=== PATIENT | female | born 1960 ===

== ENCOUNTER 2017-12-01 08:03 | Inpatient (IN) | payer OTHER ==
[~2017-12-01] VITALS: Ht 165.1 cm; Wt 53.1 kg
[~2017-12-01 08:03] MED LIST: CITA20TA19 PO
--- NOTE | 2017-12-02 01:15 | NUR ---
Intake Notes Px is a 57 y/o female, seen at intake, A&Ox4, no SOB with moderate to severe anxiety noted at this time. Discussed with patient the admission policies of the unit. Patient is coherent and able to respond to questions appropriately. Px is ambulatory with steady gait. Vital signs taken and as follows: BP: 127/84, P: 91, R: 17, O2: 97%, T: 96.5, PA: 0. Px verbalized understanding of instructions and teachings regarding disposal of narcotic and other controlled home medications, unit protocols such as taking of vital signs Q4H and handling and disposal of contraband. We'll continue with admission upon px's arrival on the unit.
[2017-12-02] MEDS ORDERED: LOPERAMIDE HCL 2 MG CAPSULE PO PRN ×2 (01:30)
[2017-12-02] MEDS ORDERED: CLONIDINE HCL 0.1 MG TABLET PO PRN (01:30)
[2017-12-02] MEDS ORDERED: IBUPROFEN 400 MG TABLET PO PRN (01:30)
[2017-12-02] MEDS ORDERED: HYDROXYZINE PAMOATE 25 MG CAPSULE PO PRN (01:30)
[2017-12-02] MEDS ORDERED: DICYCLOMINE HCL 20 MG TABLET PO PRN (01:30)
[2017-12-02] MEDS ORDERED: ACETAMINOPHEN 325 MG TABLET PO PRN (01:30)
[2017-12-02] MEDS ORDERED: ONDANSETRON ODT 4 MG TAB.RAPDIS SL PRN (01:30)
[2017-12-02] MEDS ORDERED: MAG HYDROX/AL HYDROX/SIMETH 30 ML LIQUID UDC PO PRN (01:30)
[2017-12-02] MEDS ORDERED: LORAZEPAM 1 MG TABLET PO PRN ×2 (01:30)
[2017-12-02] MEDS ORDERED: ONDANSETRON 4 MG/2 ML VIAL IM PRN (01:30)
[2017-12-02] MEDS ORDERED: MAGNESIUM HYDROXIDE 30 ML LIQUID UDC PO PRN (01:30)
[2017-12-02] MEDS ORDERED: diphenhydrAMINE 50 MG CAPSULE PO PRN (01:30)
[2017-12-02] MEDS ORDERED: LORAZEPAM 2 MG/1 ML VIAL IM PRN (01:30)
[2017-12-02] MEDS ORDERED: MIRALAX 17 GM POWD.PACK PO PRN (01:30)
[2017-12-02] MEDS ORDERED: THIAMINE HCL 200 MG/2 ML VIAL IM ONE (01:30)
[2017-12-02 01:42] LABS: BASOPHILS # (AUTO) 0.1 K/uL (0.0-8.0); BASOPHILS % (AUTO) 1.1 % (0.0-2.0); EOSINOPHILS % (AUTO) 0.5 % (0.0-7.0); HEMATOCRIT 41.3 % (31.2-41.9); HEMOGLOBIN 14.9 g/dL (10.9-14.3); LYMPHOCYTES # (AUTO) 0.9 K/uL (20.0-40.0); LYMPHOCYTES % (AUTO) 17.8 % (20.5-51.5); MEAN CORPUSCULAR HEMOGLOBIN 33.9 uug (24.7-32.8); MEAN CORPUSCULAR HGB CONC 36 g/dL (32.3-35.6); MEAN CORPUSCULAR VOLUME 94.2 fL (75.5-95.3); MONOCYTES # (AUTO) 0.5 K/uL (2.0-10.0); MONOCYTES % (AUTO) 10.8 % (0.0-11.0); NEUTROPHILS # (AUTO) 3.5 K/uL (1.8-8.9); NEUTROPHILS % (AUTO) 69.8 % (38.5-71.5); PLATELET COUNT (AUTO) 378 K/uL (179-408); RED BLOOD CELL COUNT(AUTO) 4.39 MIL/uL (3.63-4.92); WHITE BLOOD COUNT (AUTO) 5.1 K/uL (3.8-11.8)
--- NOTE | 2017-12-02 01:45 | NUR ---
Admission Notes Ranjit is a 57 y/o female admitted on 12/02/17 for ETOH dependence, arrived on the unit at 0128. Px able to provide UDS during intake. Skin and body check completed. Ranjit is full code, NKA, regular diet and on fall/seizure precautions. No reported seizure history. Ranjit reports PMHx of anxiety, insomnia and breast augmentation in 1988. Ranjit refuses flu/pneumonia vaccine. Vitals upon assessment are BP: 125/81, P: 93, R: 18, O2: 97%, T: 97.3, PA: 0/10. Ranjit's weight 117 lbs, and height 5'5". Ranjit is currently intoxicated and reports his last intake was wine 1 L on 12/01/2017. Ranjit has OB and Gyne, Dr. Vo. Ranjit smokes approximately 5 to 10 sticks of cigarettes daily. Ranjit denies being hospitalized or in intermediate within past 30 days. Ranjit is not currently taking any home medications. Ranjit is able to understand and respond to all questions pertaining to his hospitalization. Substance Abuse History is as follows: 1. ETOH- Wine 1.25 L a day for 2 months, last intake on 12/01/2017 1L. Ranjit has been drinking for 36 years Pxs longest sober period was 9 months in 2013. Ranjit reports several rehab and detox already. Reports substance use history with her grandfather. Upon assessment, ranjit is A&Ox4 and presents with anxiety, agitation, and flushed skin. Respirations are even and unlabored. Px denies SOB or chest pain. Bowel sounds active x 4, abdomen soft. PERRLA. Skin intact, no open wounds noted. Px denies SI/HI at this time. Px reports not having history of suicidal thoughts. Educational information provided and left at bedside. Px oriented to room and encouraged to notify staff with any concerns. Safety measures in place. Call light within reach, side rails up x 2, bed locked and in low position. We'll continue to monitor.
[2017-12-02 01:57] LABS: BILIRUBIN,TOTAL 0.6 mg/dL (0.2-1.0); CREATININE 0.7 mg/dL (0.6-1.3); MAGNESIUM 2.1 mg/dL (1.8-2.4); POTASSIUM 3.8 mmol/L (3.5-5.1); TOTAL PROTEIN, SERUM 9.2 g/dL (6.4-8.2)
[2017-12-02 02:00] LABS: *AMPHETAMINE, URINE NEGATIVE (NEGATIVE); *BARBITURATE, URINE NEGATIVE (NEGATIVE); *CANNABINOID, URINE NEGATIVE (NEGATIVE); *COCCAINE, URINE NEGATIVE (NEGATIVE); *OPIATE, URINE NEGATIVE (NEGATIVE); *PHENCYCLIDINE SCREEN,URINE NEGATIVE (NEGATIVE)
[2017-12-02 02:03] LABS: *URINE HCG, QUAL NEGATIVE (NEGATIVE)
[2017-12-02 02:07] LABS: THYROID STIMULATING HORMONE 1.825 mIU/mL (0.358-3.740)
--- NOTE | 2017-12-02 02:14 | NUR ---
PRN meds Px reports severe anxiety and wanted to sleep badly. CIWA 13. Ativan 1 mg/tab, 2 tabs given PO; Benadryl 50 mg/cap, 1 cap given PO; Vistaril 25 mg/cap, 2 caps given PO as PRN meds. We'll continue to monitor.
[2017-12-02] MEDS ORDERED: THIAMINE HCL 200 MG/2 ML VIAL ONE (02:26)
[2017-12-02] MEDS ORDERED: HYDROXYZINE PAMOATE 25 MG CAPSULE ONE (02:26)
[2017-12-02] MEDS ORDERED: LORAZEPAM 1 MG TABLET ONE (02:27)
[2017-12-02] MEDS ORDERED: diphenhydrAMINE 50 MG CAPSULE ONE (02:27)
[2017-12-02 04:00] VITALS: BP 117/78
--- NOTE | 2017-12-02 04:00 | NUR ---
CIWA deferred CIWA deferred due to the px is asleep, to assess if the px is awake per doctor's order. We'll continue to monitor.
--- NOTE | 2017-12-02 07:07 | NUR ---
End of Shift Notes 57 y/o female admitted on 12/02/17 for ETOH dependence, arrived on the unit at 0128. Px is full code, NKA, regular diet and on fall/seizure precautions. No reported seizure history. Px reports PMHx of anxiety, insomnia and breast augmentation in 1988. Px is A&Ox4 and presents with anxiety, agitation, and flushed skin. Respirations are even and unlabored. At 0214, Px reports severe anxiety and wanted to sleep badly. CIWA 13. Ativan 1 mg/tab, 2 tabs given PO; Benadryl 50 mg/cap, 1 cap given PO; Vistaril 25 mg/cap, 2 caps given PO as PRN meds. Oral intake of 500 ml, voided 1x, No BM. Slept for 3 hours. Safety measures in place. Call light within reach, side rails up x 2, bed locked and in low position. We'll continue to monitor.
[2017-12-02 08:00] VITALS: BP 110/80
[2017-12-02] MEDS: FOLIC ACID 1 MG TABLET PO SCH (09:29)
[2017-12-02] MEDS: MULTIVITAMINS,THERAPEUTIC TABLET PO SCH (09:29)
[2017-12-02] MEDS: THIAMINE HCL 100 MG TABLET PO SCH (09:29)
--- NOTE | 2017-12-02 09:30 | NUR ---
START OF SHIFT Received report from pulp drier firer nurse. Patient is 57 year old female admitted for medically supervised withdrawal from alcohol. Patient is full code with NKA. On assessment this AM: CIWA: 3. Denies SOB, chest pain. Patients vitals signs WNL. Patient reports anxiety and lightheadedness. Denies agitation, nausea, vomiting, stomach cramps, diarrhea, tremors, sweating, tactile disturbance, auditory or visual hallucinations at this time. Compliant with AM meds. No PRN given. Patient has steady gait. Encouraged to attend group meetings today. Will continue to monitor patient.
--- NOTE | 2017-12-02 09:50 | NUR ---
Client prompted to attend groups. Client shall attend once she feels ready.
[2017-12-02 12:00] VITALS: BP 121/84
[2017-12-02] MEDS: LORAZEPAM 1 MG TABLET PO SCH ×3 (13:13→21:46)
[2017-12-02 16:00] VITALS: BP 133/93
[2017-12-02] MEDS: BENZOCAINE/MENTH/CETYLPYRD LOZENGE MM PRN (17:18)
--- NOTE | 2017-12-02 17:18 | NUR ---
PRN THROAT LOZENGE Patient complains of sore throat, prn throat lozenge given. Will continue to monitor patient.
--- NOTE | 2017-12-02 18:18 | NUR ---
REASSESSMENT PRN THROAT LOZENGE Patient reports sore throat improved with med.
--- NOTE | 2017-12-02 18:41 | NUR ---
END OF SHIFT Patient is 57 year old female admitted for medically supervised withdrawal from alcohol. Patient is full code with NKA. Patient on Ativan taper. Patient is mildly tachycardic (between 101-103) this shift. CIWA at 16:00pm was 3. Patient reports anxiety. Denies tremors, tactile disturbances, feelings of fullness around her head, nausea, vomiting, stomach cramping, diarrhea, sweating, agitation, auditory or visual hallucinations at this time. Compliant with meds this shift. BM X 1, normal. PRN Throat lozenge given for sore throat. manager diabetesrn shift mgr will continue to monitor patient.
[2017-12-02 20:00] VITALS: BP 105/77
--- NOTE | 2017-12-02 20:00 | NUR ---
Start of Shift Notes Received 57 y/o female admitted on 12/02/17 for ETOH dependence. Px is full code, NKA, regular diet and on fall/seizure precautions. Px reports PMHx of anxiety, insomnia and breast augmentation in 1988. Px is A&Ox4. During the rounds at 1999, no complaints reported. Safety measures in place. Call light within reach, side rails up x 2, bed locked and in low position. We'll continue to monitor.
[2017-12-03] VITALS: BP 100/70
[2017-12-03 04:00] VITALS: BP 110/72
--- NOTE | 2017-12-03 04:00 | NUR ---
CIWA deferred CIWA deferred at 0000 and 0400 due to the px is asleep, to assess if the px is awake per doctor's order. We'll continue to monitor.
--- NOTE | 2017-12-03 07:16 | NUR ---
End of Shift Notes 57 y/o female admitted on 12/02/17 for ETOH dependence. Px is full code, NKA, regular diet and on fall/seizure precautions. Px reports PMHx of anxiety, insomnia and breast augmentation in 1988. Px is A&Ox4. During the shift, no complaints reported. Oral intake of 200 ml, not voided, no BM. Slept for 11 hours. Safety measures in place. Call light within reach, side rails up x 2, bed locked and in low position. We'll continue to monitor.
--- NOTE | 2017-12-03 07:30 | NUR ---
START OF SHIFT Pt 57 y/o female admitted for etoh dependence. Pt received in room on bed awake watching television. Pt alert and oriented to name, place, and time. Perrla. Skin warm and slightly moist to touch. Respirations even and unlabored. Bilateral hand tremors noted slightly. Pt appears slightly anxious this morning. It was reported that pt slept for 11 hours last night. Bed on lowest position with side rails x2 up for safety. Call light within reach. No distress noted at this time.
[2017-12-03 08:00] VITALS: BP 122/85
[2017-12-03] MEDS: MULTIVITAMINS,THERAPEUTIC TABLET PO SCH (08:49)
[2017-12-03] MEDS: FOLIC ACID 1 MG TABLET PO SCH (08:49)
[2017-12-03] MEDS: CITALOPRAM 20 MG TABLET PO SCH (08:49)
[2017-12-03] MEDS: THIAMINE HCL 100 MG TABLET PO SCH (08:49)
[2017-12-03] MEDS: LORAZEPAM 1 MG TABLET PO SCH ×3 (08:49→21:05)
[2017-12-03] MEDS ORDERED: TUBERCULIN,PURIF.PROT.DERIV. 5 TU/0.1 ML TEST ID ONE (09:00)
[2017-12-03 12:33] VITALS: BP 132/96
[2017-12-03 14:07] LABS: HEPATITIS B SURFACE AG Negative (Negative)
--- NOTE | 2017-12-03 15:11 | NUR ---
Therapist prompted client to come to group. Client agreed.
[2017-12-03 16:00] VITALS: BP 14/80
--- NOTE | 2017-12-03 18:11 | NUR ---
END OF SHIFT Pt 57 y/o female admitted for etoh dependence. Pt alert and oriented to name, place, and time. Perrla. Skin warm and slightly moist to touch. Respirations even and unlabored. Bilateral hand tremors noted slightly. Pt with some periods of anxiety this morning. Pt observed mostly isolative to room throughout the day. Pt attended group activity. Pt was seen by MD today. Pt medication compliant and tolerated well. No ASE noted. Bed on lowest position with side rails x2 up for safety. Call light within reach. No distress noted at this time.
--- NOTE | 2017-12-03 19:15 | NUR ---
START OF SHIFT Received 57 year old female patient admitted on 12/02/17 for ETOH dependency. Pt is full code with NKA. She reports a PMHx of insomnia, anxiety, and breast augmentation in 1988. She reports drinking ETOH (wine) 1.25L /day for 2 months. Last dose was 1L on 12/01/17. Pt is currently receiving 5 day Ativan taper and tolerating well. Per endorsement, she did not receive or request PRN medications. Pt is alert and oriented x4, breathing is even and unlabored. Safety measures in place. Will continue to monitor.
[2017-12-03 20:00] VITALS: BP 96/64
[2017-12-03] MEDS: GABAPENTIN 300 MG CAPSULE PO SCH (21:06)
[2017-12-03] MEDS: QUETIAPINE FUMARATE 25 MG TABLET PO PRN (21:07)
--- NOTE | 2017-12-03 21:07 | NUR ---
PRN SEROQUEL Pt reports inability to sleep. PRN Seroquel administered as ordered. Breathing even and unlabored, safety measures in place. Will continue to monitor.
--- NOTE | 2017-12-03 22:07 | NUR ---
PRN SEROQUEL REASSESSMENT PRN medication effective. Pt is lying in bed with eyes closed noted to be asleep. Respirations 16, breathing is even and unlabored. Safety measures in place. Will continue to monitor.
--- NOTE | 2017-12-04 | NUR ---
VITALS REFUSED, CIWA DEFERRED 0000 vitals refused. CIWA deferred d/t pt lying in bed with eyes closed noted to be asleep. Breathing even and unlabored. Safety measures in place. Will monitor.
--- NOTE | 2017-12-04 04:00 | NUR ---
VITALS REFUSED, CIWA DEFERRED 0400 vitals refused. CIWA deferred d/t pt lying in bed with eyes closed noted to be asleep. Safety measures in place. Will continue to monitor.
--- NOTE | 2017-12-04 07:16 | NUR ---
END OF SHIFT Pt is a 57 year old female patient admitted on 12/02/17 for ETOH dependency. Pt is full code with NKA. She reports a PMHx of insomnia, anxiety, and breast augmentation in 1988. Pt continues on a 5 day Ativan taper and tolerating well. At 2106 she received PRN seroquel. She slept a total of 10 hrs, Intake: 350mL, Void: x1, BM:0, CIWA:2. Pt remains alert and oriented x4, breathing is even and unlabored. Safety measures in place. Endorsed to AM shift.
--- NOTE | 2017-12-04 07:30 | NUR ---
START OF SHIFT Pt 57 y/o female admitted for etoh dependence. Pt received in room on awake walking around in room. Pt alert and oriented to name, place, and time. Perrla. Skin warm and slightly moist to touch. Respirations even and unlabored. Bilateral hand tremors noted slightly. It was reported that pt slept for 10 hours last night. Bed on lowest position with side rails x2 up for safety. Call light within reach. No distress noted at this time.
[2017-12-04 08:00] VITALS: BP 134/90
[2017-12-04] MEDS: LORAZEPAM 1 MG TABLET PO SCH ×3 (08:32→20:30)
[2017-12-04] MEDS: MULTIVITAMINS,THERAPEUTIC TABLET PO SCH (08:32)
[2017-12-04] MEDS: GABAPENTIN 300 MG CAPSULE PO SCH ×2 (08:32→20:30)
[2017-12-04] MEDS: CITALOPRAM 20 MG TABLET PO SCH (08:32)
[2017-12-04] MEDS: THIAMINE HCL 100 MG TABLET PO SCH (08:32)
[2017-12-04] MEDS: FOLIC ACID 1 MG TABLET PO SCH (08:32)
[2017-12-04] MEDS ORDERED: LORAZEPAM 1 MG TABLET PO SCH (09:00)
[2017-12-04 12:29] VITALS: BP 146/85
[2017-12-04 16:00] VITALS: BP 132/83
--- NOTE | 2017-12-04 18:47 | NUR ---
END OF SHIFT Pt 57 y/o female admitted for etoh dependence. Pt alert and oriented to name, place, and time. Perrla. Skin warm and slighlty moist to touch. Respirations even and unlabored. Bilateral hand tremors noted slightly. Pt observed mostly in room throughout the day. Pt attended group activity. Pt was seen by MD today. Pt medication compliant and tolerated well. No ASE noted. Bed on lowest position with side rails x2 up for safety. Call light within reach. No distress noted at this time.
--- NOTE | 2017-12-04 19:10 | NUR ---
START OF SHIFT Patient is a 57-year-old female admitted on 12/02/17 for ETOH (wine) dependence. Patient us FULL code, on a regular diet, with NKA to food or drugs. Patient has a past medical history of anxiety, insomnia, and breast augmentation. Patient is on fall and seizure precautions. Patient is on a 5-day Ativan taper, tolerating well. Upon assessment, patient is alert and oriented, skin dry and intact, no complaints of SOB or chest pain. Safety measures in place, bed locked in low position, side rails up x2, call light within reach. Will continue monitor.
[2017-12-04 20:00] VITALS: BP 103/83
[2017-12-04] MEDS: QUETIAPINE FUMARATE 25 MG TABLET PO PRN (20:45)
--- NOTE | 2017-12-04 20:45 | NUR ---
PRN SEROQUEL Patient reports difficulty sleeping and requests aid. PRN Seroquel 50mg given PO. Safety measures in place, bed locked in low position, side rails up x2, call light within reach. Will reassess in one hour.
--- NOTE | 2017-12-04 21:45 | NUR ---
PRN SEROQUEL REASSESSMENT Patient is resting in bed with eyes closed. Respirations 16/min, even and unlabored. PRN Seroquel effective. Safety measures in place, call light within reach. Will continue to monitor.
--- NOTE | 2017-12-05 | NUR ---
VITAL SIGNS REFUSED, CIWA DEFERRED Patient refused midnight vitals, CIWA deferred due to patient asleep; to be assessed and scored while patient is awake. Respirations 16/min, even and unlabored. Safety measures in place, call light within reach. Will continue to monitor.
--- NOTE | 2017-12-05 04:00 | NUR ---
VITAL SIGNS REFUSED, CIWA DEFERRED Patient refused 0400 vitals, CIWA deferred due to patient asleep; to be assessed and scored while patient is awake. Respirations 14/min, even and unlabored. Safety measures in place, call light within reach. Will continue to monitor.
--- NOTE | 2017-12-05 07:05 | NUR ---
END OF SHIFT Patient is a 57-year-old female admitted on 12/02/17 for ETOH (wine) dependence. Patient us FULL code, on a regular diet, with NKA to food or drugs. Patient has a past medical history of anxiety, insomnia, and breast augmentation. Patient is on fall and seizure precautions. Patient is on a 5-day Ativan taper, tolerating well. Patient slept for 11 hours, total intake 855 mL, void x1, stool x0. Patient received PRN Seroquel last night at 2045. Last CIWA score was 1. Safety measures in place, bed locked in low position, side rails up x2, call light within reach. Will endorse to day shift.
--- NOTE | 2017-12-05 07:30 | NUR ---
START OF SHIFT Pt 57 y/o female admitted for etoh dependence. Pt received in room on awake watching television in room. Pt alert and oriented to name, place, and time. Perrla. Skin warm and slightly moist to touch. Respirations even and unlabored. Bilateral hand tremors noted slightly. Pt appears slightly irritable this morning. It was reported that pt slept for 11 hours last night. Bed on lowest position with side rails x2 up for safety. Call light within reach. No distress noted at this time.
[2017-12-05 08:00] VITALS: BP 127/81
[2017-12-05] MEDS: LORAZEPAM 1 MG TABLET PO SCH ×2 (08:43→20:25)
[2017-12-05] MEDS: THIAMINE HCL 100 MG TABLET PO SCH (08:43)
[2017-12-05] MEDS: GABAPENTIN 300 MG CAPSULE PO SCH ×3 (08:43→20:25)
[2017-12-05] MEDS: FOLIC ACID 1 MG TABLET PO SCH (08:43)
[2017-12-05] MEDS: MULTIVITAMINS,THERAPEUTIC TABLET PO SCH (08:43)
[2017-12-05] MEDS: CITALOPRAM 20 MG TABLET PO SCH (08:43)
[2017-12-05] MEDS ORDERED: LORAZEPAM 1 MG TABLET PO SCH (09:00)
[2017-12-05 12:36] VITALS: BP 125/95
[2017-12-05 16:00] VITALS: BP 140/92
--- NOTE | 2017-12-05 19:30 | NUR ---
START OF SHIFT Pt is a 57-year-old female admitted for ETOH dependency. Patient is FULL code, on a regular diet,has NKA. PMH of anxiety, insomnia, and breast augmentation. Patient is on fall and seizure precautions. Patient is on a 5-day Ativan taper, tolerating well. Pt is A/A/O X 4; skin is warm, dry and intact, no complaints of SOB or chest pain. Safety measures in place, bed locked in low position, side rails up x2, call light within reach. Will continue monitor.
[2017-12-05 20:00] VITALS: BP 119/88
[2017-12-05] MEDS: QUETIAPINE FUMARATE 25 MG TABLET PO PRN (20:29)
--- NOTE | 2017-12-05 20:30 | NUR ---
PRN MED PT C/O FEELING TIRED AND WANTS TO SLEEP WELL AT NIGHT.SAID SHE TAKES SEROQUEL DAILY AT BED TIME TO HELP HER SLEEP. PRN SEROQUEL GIVEN ORDERED FOR INSOMNIA.WILL MONITOR.
--- NOTE | 2017-12-05 21:30 | NUR ---
PRN F/U PT SEEN RESTING IN BED,SAID SHE IS BEGINNING TO FALL ASLEEP.PT DOES NOT WANT TO BE WOKEN UP AT MIDNIGHT AND 0400 FOR V/S PER HER REQUEST.WILL CONTINUE TO MONITOR.
--- NOTE | 2017-12-06 | NUR ---
VITAL SIGNS REFUSED, CIWA DEFERRED Patient refused V/S, CIWA deferred due to patient asleep; Respirations are even and unlabored. Safety measures in place, call light within reach. Will continue to monitor.
--- NOTE | 2017-12-06 06:40 | NUR ---
END OF SHIFT Pt is a 57-year-old female admitted for ETOH dependency. Patient is FULL code, on a regular diet,has NKA. PMH of anxiety, insomnia, and breast augmentation. Patient is on fall and seizure precautions. Patient is on a 5-day Ativan taper, tolerating well. Pt is A/A/O X 4; skin is warm, dry and intact, no complaints of SOB or chest pain.PRN Seroquel given for c/o insomnia with good effect; pt slept 9 hrs; fluid intake was 500 mls,voided x 1 .Safety measures in place, bed locked in low position, side rails up x2, call light within reach. Will continue monitor.
--- NOTE | 2017-12-06 07:15 | NUR ---
START OF SHIFT Pt is a 57-year-old female admitted for ETOH withdrawal. Patient is FULL code, on a regular diet,has NKA. PMH of anxiety, insomnia, and breast augmentation. Patient is on fall and seizure precautions. Patient is on a 5-day Ativan taper and today is day 4 tolerating well. Pt is asleep in bed at this time, breathing unlabored. Last CIWA 1 @ 1999. PRN Seraquil given on PM shift. Safety measures in place, bed locked in low position, side rails up x2, call light within reach. Will continue monitor.
[2017-12-06 08:00] VITALS: BP 130/87
[2017-12-06] MEDS: MULTIVITAMINS,THERAPEUTIC TABLET PO SCH (08:43)
[2017-12-06] MEDS: THIAMINE HCL 100 MG TABLET PO SCH (08:44)
[2017-12-06] MEDS: CITALOPRAM 20 MG TABLET PO SCH (08:44)
[2017-12-06] MEDS: FOLIC ACID 1 MG TABLET PO SCH (08:44)
[2017-12-06] MEDS: GABAPENTIN 300 MG CAPSULE PO SCH ×3 (08:44→20:00)
[2017-12-06] MEDS ORDERED: LORAZEPAM 1 MG TABLET PO SCH ×2 (09:00)
[2017-12-06 12:00] VITALS: BP 175/86
--- NOTE | 2017-12-06 12:45 | NUR ---
Therapist prompted client to attend groups today, client agreed to attend group.
[2017-12-06 13:10] VITALS: BP 120/78
[2017-12-06 16:00] VITALS: BP 142/78
[2017-12-06] MEDS: BENZOCAINE/MENTH/CETYLPYRD LOZENGE MM PRN (18:35)
--- NOTE | 2017-12-06 18:35 | NUR ---
PRN CEPACOL PT COMPLAINS OF SORE THROAT, CEPACOL THROAT LOZENGE GIVEN
--- NOTE | 2017-12-06 18:49 | NUR ---
END OF SHIFT Pt is a 57-year-old female admitted for ETOH withdrawal. Patient is FULL code, on a regular diet,has NKA. PMH of anxiety, insomnia, and breast augmentation. Patient is on fall and seizure precautions. Patient is on a 5-day Ativan taper, tolerating well. Pt is A/A/O X 4; skin is warm, dry and intact, no complaints of SOB or chest pain. Last CIWA 2 @ 1600, PRN cepacol throat lozenge given at 1835 for complaints of sore throat, VS within normal limits. Safety measures in place, bed locked in low position, side rails up x2, call light within reach. Will continue monitor
--- NOTE | 2017-12-06 19:30 | NUR ---
Start of Shift Notes: Report received from day shift nurse. Pt is 57F, admitted for ETOH Dependence on 12/02/17. Pt was in room watching TV upon start of shift. Upon assessment, pt is AOx4 without s/s of acute distress noted. Pt is full code, on regular diet, and on fall precautions. Pt noted with NKA. Pt reports hx of anxiety, insomnia, and breast augmentation. Pt has completed Ativan taper to manage withdrawal symptoms. Per day shift nurse, last CIWA was 1 at 1600. Bed in lowest position. Side rails up x2. Call light functioning and within reach. All needs attended and met. Will continue to monitor.
[2017-12-06 20:00] VITALS: BP 116/75
[2017-12-06] MEDS: QUETIAPINE FUMARATE 25 MG TABLET PO PRN (20:00)
--- NOTE | 2017-12-06 20:00 | NUR ---
Seroquel PRN: Pt stated she wanted to sleep early because she will be discharged tomorrow. Pt requested Seroquel for sleep along with her night time medication. Seroquel PRN given as ordered. Will continue to monitor.
[2017-12-06] MEDS ORDERED: IBUP-1953 PO (21:36)
[2017-12-06] MEDS ORDERED: QUET25TA PO (21:36)
[2017-12-06] MEDS ORDERED: GABA-534 PO (21:36)
[2017-12-06] MEDS ORDERED: CLON0.1T14 PO (21:45)
--- NOTE | 2017-12-07 07:44 | NUR ---
START OF SHIFT RECEIVED PT A/O X4, RESPIRATIONS EVEN AND UNLABORED. PT IS TO BE DISCHARGED TO DAY, PT STATES SHE IS READY. SIDE RAILS UP X2, BED IS IN LOWEST POSITION. CALL LIGHT WITHIN REACH. ALL SAFETY MEASURES IN PLACE. WILL CONTINUE TO MONITOR.
[2017-12-07 08:00] VITALS: BP 131/89
[2017-12-07] MEDS: GABAPENTIN 300 MG CAPSULE PO SCH (08:16)
[2017-12-07] MEDS: FOLIC ACID 1 MG TABLET PO SCH (08:16)
[2017-12-07] MEDS: MULTIVITAMINS,THERAPEUTIC TABLET PO SCH (08:16)
[2017-12-07] MEDS: THIAMINE HCL 100 MG TABLET PO SCH (08:16)
[2017-12-07] MEDS: CITALOPRAM 20 MG TABLET PO SCH (08:16)
--- NOTE | 2017-12-07 09:38 | NUR ---
DISCHARGE NOTE PT IS A/O X4, RESPIRATIONS EVEN AND UNLABORED, IN STABLE CONDITION, VS WNL. PT SKIN IS INTACT, DENIES SI/HI. ALL DISCHARGE PAPERWORK SIGNED, DATED, AND PT D/C INSTRUCTIONS GIVEN. LAST CIWA 1 AT 0800. PT WAS DISCHARGED AND [facility] AT 0938 ON 12/07/17 WITH ALL BELONGINGS, PRESCRIPTIONS, AND DISCHARGE PAPERWORK. AWARE OF PT D/C.
== END 2017-12-07 09:38 | disposition other institution (70) | DRG 895 ==
LOC: SRC 12-02 00:20
PROVIDERS: ADMIT Internal Medicine; ATTEND Internal Medicine
PROC: HZ41ZZZ Group Counseling for Substance Abuse Treatment, Behavioral (ICD-10-PCS; principal; 2017-12-02)
PROC: HZ2ZZZZ Detoxification Services for Substance Abuse Treatment (ICD-10-PCS; principal; 2017-12-02)
PROC: HZ31ZZZ Individual Counseling for Substance Abuse Treatment, Behavioral (ICD-10-PCS; 2017-12-04)
DX: F10.230 Alcohol dependence with withdrawal, uncomplicated (principal); E87.8 Other disorders of electrolyte and fluid balance, not elsewhere classified; E87.1 Hypo-osmolality and hyponatremia; F17.210 Nicotine dependence, cigarettes, uncomplicated; Z91.89 Other specified personal risk factors, not elsewhere classified; Y90.7 Blood alcohol level of 200-239 mg/100 ml; F41.9 Anxiety disorder, unspecified; G47.00 Insomnia, unspecified; Z81.1 Family history of alcohol abuse and dependence; E86.1 Hypovolemia; Z79.899 Other long term (current) drug therapy; F32.9 Major depressive disorder, single episode, unspecified
CPT/HCPCS: 36415; 70030-TC; 80307; 83690; 83735; 84443; 84703; 85025; 86580; 86592; 86705; 86803; 87340; 87806; A4663; G0480; J3411; Q0163